=== PATIENT | female | born 1990 | race Caucasian/White ===

== ENCOUNTER 2018-12-25 09:23 | Emergency (ER) | payer OTHER ==
[~2018-12-25] VITALS: Ht 182.9 cm; Wt 71.2 kg
--- NOTE | 2018-12-25 09:37 | NUR ---
BIB SELF W C/O DYSURIA SINCE LAST NIGHT, TO ER BED 9, HOOKED TO MONITOR, AWAITING MD ROJO
--- NOTE | 2018-12-25 09:38 | NUR ---
JANIE ROMEO AT BEDSIDE FOR EVAL
[2018-12-25 09:51] LABS: APPEARANCE,URINE Slightly Cloudy (CLEAR); BILIRUBIN,URINE LARGE (NEGATIVE); BLOOD, URINE Trace-intact Ery/uL (NEGATIVE); COLOR,URINE Red (YELLOW); KETONES,URINE 15 (NEGATIVE); LEUKOCYTE ESTERASE ,URINE Large (NEGATIVE); NITRITE, URINE Positive (NEGATIVE); PH,URINE 8.5 (5.0-8.0); PROTEIN,URINE >=300 mg/dl (NEGATIVE); UGLUCOSE 500 MG/DL mg/dL (NEGATIVE); UROBILINOGEN,URINE >=8.0 EU/dL (0.2)
[2018-12-25 10:19] LABS: BACTERIA,URINE Few /HPF (None Seen); RBC,URINE 0-2 /HPF (0-2); SQUAMOUS EPITHELIAL CELL,UR Few /HPF (None Seen)
[2018-12-25 10:20] LABS: URINE AMORPHOUS PHOSPHATES Many /HPF (None Seen)
--- NOTE | 2018-12-25 11:04 | NUR ---
Patient discharged to home in stable condition. Written and verbal after care instructions given. Patient verbalizes understanding of instruction.
[2018-12-25 11:12] VITALS: BP 122/80
== END 2018-12-25 11:06 | disposition home or self-care (01) ==
LOC: ER 09:27
DX: N39.0 Urinary tract infection, site not specified (principal); R81 Glycosuria
CPT/HCPCS: 81000-TC; 82962-TC; 87086-TC